=== PATIENT | female | born 1965 | race Caucasian/White ===

== ENCOUNTER 2019-03-30 10:28 | Emergency (ER) | payer MEDICARE, MEDICAID ==
[~2019-03-30] VITALS: Ht 165.1 cm; Wt 85.0 kg
[~2019-03-30 10:28] MED LIST: ALPR-623 PO; COU1T PO; EFF25T PO; LAMO1TAB PO
[2019-03-30 11:20] VITALS: BP 148/100
[2019-03-30] MEDS ORDERED: cyanocobalamin 1,000 mcg/ml inj IM ONE (12:10)
[2019-03-30] MEDS ORDERED: MISCELLANEOUS INJECTION IM ONE (12:15)
== END 2019-03-30 12:59 | disposition home or self-care (01) ==
LOC: ER 10:29
DX: K13.79 Other lesions of oral mucosa (principal); F31.9 Bipolar disorder, unspecified; F41.9 Anxiety disorder, unspecified; Z88.0 Allergy status to penicillin; Z79.899 Other long term (current) drug therapy; Z79.01 Long term (current) use of anticoagulants; Z87.440 Personal history of urinary (tract) infections; Z87.442 Personal history of urinary calculi; Z86.718 Personal history of other venous thrombosis and embolism; Z90.49 Acquired absence of other specified parts of digestive tract; Z87.09 Personal history of other diseases of the respiratory system
CPT/HCPCS: 96372; 99283; J3420

== ENCOUNTER 2019-08-23 18:36 | Emergency (ER) | payer MEDICARE, MEDICAID ==
[~2019-08-23] VITALS: Ht 157.5 cm; Wt 79.5 kg
[2019-08-23 18:47] VITALS: BP 167/86
== END 2019-08-23 20:13 | disposition home or self-care (01) ==
LOC: ER 18:37
DX: Z48.00 Encounter for change or removal of nonsurgical wound dressing (principal); Z86.718 Personal history of other venous thrombosis and embolism; Z86.711 Personal history of pulmonary embolism; Z87.442 Personal history of urinary calculi; Z90.49 Acquired absence of other specified parts of digestive tract; Z88.0 Allergy status to penicillin
CPT/HCPCS: 99281; 99282

== ENCOUNTER 2019-11-02 10:19 | Emergency (ER) | payer MEDICARE, MEDICAID ==
[~2019-11-02] VITALS: Ht 157.5 cm; Wt 80.3 kg
--- NOTE | 2019-11-02 10:34 | NUR ---
PT COMPLAINING OF BODY ACHES SINCE SAID SHE STARTED TO FEEL BETTER YESTERDAY BUT FEELING WORSE TODAY HAVING HOT AND COLD FLASHES WITH BODY ACHES HAS NAUSESA BUT DENIES VOMITING AND DIAREA. DENIES SHORTNESS OF BREATH
[2019-11-02] MEDS ORDERED: normal saline 1000ML IV soln IVB ONE (10:55)
[2019-11-02] MEDS ORDERED: famotidine/PF 10 mg/ml inj IV ONE (10:55)
[2019-11-02] MEDS ORDERED: acetaminophen 325mg tablet PO ONE (10:55)
[2019-11-02] MEDS ORDERED: ringers solution, lacted 1,000 ML IV ONE (11:50)
[2019-11-02 11:54] LABS: BASOPHILS # (AUTO) 0.1 X10'3 (0-0.2); BASOPHILS % (AUTO) 1.1 % (0-1); EOSINOPHILS % (AUTO) 0.1 % (0-6); HEMATOCRIT 42.1 % (35.0-45.0); HEMOGLOBIN 14.1 g/dl (12.0-16.0); LYMPHOCYTES # (AUTO) 1.6 X10'3 (1.1-4.8); LYMPHOCYTES % (AUTO) 24.1 % (21-51); MEAN CORPUSCULAR HEMOGLOBIN 29.5 PG (27.0-31.0); MEAN CORPUSCULAR HGB CONC 33.5 g/dL (33.0-36.5); MEAN CORPUSCULAR VOLUME 88.2 FL (78-98); MONOCYTES # (AUTO) 0.3 X10'3 (0-0.9); MONOCYTES % (AUTO) 3.7 % (2-12); NEUTROPHILS # (AUTO) 4.8 X10'3 (1.8-7.7); PLATELET COUNT 331 X10'3 (140-440); RED BLOOD COUNT 4.78 X10'6 (4.20-5.60); RED CELL DISTRIBUTION WIDTH 14.2 % (11.5-14.5); WHITE BLOOD COUNT 6.8 X10'3 (4.5-11.0)
[2019-11-02 11:55] LABS: ALANINE AMINOTRANSFERASE 24 U/L (12-78); ALBUMIN 4.3 G/DL (3.4-5.0); ALBUMIN/GLOBULIN RATIO 1.3 (1.1-1.5); ALKALINE PHOSPHATASE 94 IU/L (46-116); ANION GAP 13 (8-16); ASPARTATE AMINO TRANSFERASE 23 U/L (10-37); BILIRUBIN,TOTAL 0.5 MG/DL (0.1-1.0); BLOOD UREA NITROGEN 15 MG/DL (7-18); BUN/CREATININE RATIO 16.3 (6.6-38.0); CALCIUM 10.1 MG/DL (8.5-10.1); CHLORIDE 109 MMOL/L (99-107); CREATININE 0.92 MG/DL (0.40-0.90); GLUCOSE 124 MG/DL (70-104); LIPASE < 50 U/L (73-393); POTASSIUM 3.8 MMOL/L (3.5-5.1); SODIUM 144 MMOL/L (135-145); TOTAL CARBON DIOXIDE 22.5 MMOL/L (24-32); TOTAL PROTEIN 7.5 G/DL (6.4-8.2); eGFR 63 ML/MIN
[2019-11-02 13:30] LABS: CLARITY,URINE CLEAR (Clear); COLOR,URINE STRAW (Yellow); GLUCOSE, URINE NEGATIVE (Neg); KETONES,URINE NEGATIVE (Neg); LEUKOCYTE ESTERASE ,URINE NEGATIVE (Neg); NITRITES, URINE NEGATIVE (Neg); OCCULT BLOOD,URINE NEGATIVE (Neg); PROTEIN,URINE NEGATIVE (Neg); UROBILINOGEN,URINE 0.2 E.U/dL (0.2-1.0)
[2019-11-02 13:42] LABS: UA COLLECTION TYPE CLN CATCH MIDSTREAM
[2019-11-02 14:09] VITALS: BP 142/56
== END 2019-11-02 14:06 | disposition home or self-care (01) ==
LOC: ER 10:19
DX: R50.9 Fever, unspecified (principal); R10.9 Unspecified abdominal pain; F41.9 Anxiety disorder, unspecified; F31.9 Bipolar disorder, unspecified; Z86.711 Personal history of pulmonary embolism; Z87.442 Personal history of urinary calculi; Z87.440 Personal history of urinary (tract) infections; Z90.89 Acquired absence of other organs; Z88.0 Allergy status to penicillin; Z79.01 Long term (current) use of anticoagulants; Z79.899 Other long term (current) drug therapy
CPT/HCPCS: 36415; 71046; 80053; 81003; 83690; 85025; 96374; 99284; J3490; J7030

== ENCOUNTER 2020-08-01 14:13 | Emergency (ER) | payer MEDICARE, MEDICAID ==
[~2020-08-01] VITALS: Ht 157.5 cm; Wt 88.6 kg
[~2020-08-01 14:13] MED LIST changes: -EFF25T PO; +VENL25TA48 PO
[2020-08-01 14:54] LABS: CLARITY,URINE CLEAR (Clear); COLOR,URINE YELLOW (Yellow); GLUCOSE, URINE NEGATIVE (Neg); KETONES,URINE TRACE mg/dl (Neg); LEUKOCYTE ESTERASE ,URINE NEGATIVE (Neg); NITRITES, URINE NEGATIVE (Neg); OCCULT BLOOD,URINE SMALL (Neg); PROTEIN,URINE NEGATIVE (Neg); UROBILINOGEN,URINE 0.2 E.U/dL (0.2-1.0)
[2020-08-01 14:56] LABS: UA COLLECTION TYPE CLN CATCH MIDSTREAM
[2020-08-01 14:59] LABS: BACTERIA,URINE 1+ /HPF (Neg); RBC,URINE 0-2 /HPF (0-2); WBC,URINE 0-4 /HPF (0-4)
[2020-08-01 15:00] LABS: MUCUS STRANDS FEW /LPF (Neg); SQUAMOUS EPITHELIAL CELL,UR MODERATE /LPF (FEW)
[2020-08-01 15:00] LABS: BASOPHILS # (AUTO) 0.1 X10'3 (0-0.2); BASOPHILS % (AUTO) 1.2 % (0-1); EOSINOPHILS % (AUTO) 0 % (0-6); HEMATOCRIT 44.8 % (35.0-45.0); HEMOGLOBIN 15.4 g/dl (12.0-16.0); LYMPHOCYTES # (AUTO) 1.7 X10'3 (1.1-4.8); LYMPHOCYTES % (AUTO) 19.8 % (21-51); MEAN CORPUSCULAR HEMOGLOBIN 30.4 PG (27.0-31.0); MEAN CORPUSCULAR HGB CONC 34.3 g/dL (33.0-36.5); MEAN CORPUSCULAR VOLUME 88.6 FL (78-98); MEAN PLATELET VOLUME 7.7 FL (7.4-10.4); MONOCYTES # (AUTO) 0.5 X10'3 (0-0.9); MONOCYTES % (AUTO) 5.6 % (2-12); NEUTROPHILS # (AUTO) 6.3 X10'3 (1.8-7.7); NEUTROPHILS % (AUTO) 73.4 % (42-75); PLATELET COUNT 383 X10'3 (140-440); RED BLOOD COUNT 5.06 X10'6 (4.20-5.60); RED CELL DISTRIBUTION WIDTH 13.7 % (11.5-14.5); WHITE BLOOD COUNT 8.6 X10'3 (4.5-11.0)
[2020-08-01 15:11] LABS: ALANINE AMINOTRANSFERASE 15 U/L (12-78); ALBUMIN 4.4 G/DL (3.4-5.0); ALBUMIN/GLOBULIN RATIO 1.2 (1.1-1.5); ALKALINE PHOSPHATASE 136 IU/L (46-116); ANION GAP 17 (8-16); ASPARTATE AMINO TRANSFERASE 16 U/L (10-37); BILIRUBIN,TOTAL 0.3 MG/DL (0.1-1.0); BLOOD UREA NITROGEN 21 MG/DL (7-18); BUN/CREATININE RATIO 23.9 (6.6-38.0); CALCIUM 10.4 MG/DL (8.5-10.1); CHLORIDE 103 MMOL/L (99-107); CREATININE 0.88 MG/DL (0.40-0.90); GLUCOSE 130 MG/DL (70-104); LIPASE < 50 U/L (73-393); SODIUM 140 MMOL/L (135-145); TOTAL CARBON DIOXIDE 19.9 MMOL/L (24-32); TOTAL PROTEIN 8.2 G/DL (6.4-8.2); eGFR 66 ML/MIN
[2020-08-01] MEDS ORDERED: normal saline 1000ML IV soln IVB ONE ×2 (17:40→20:00)
--- NOTE | 2020-08-01 19:33 | NUR ---
Patient up to the bathroom Ad Claudia.
[2020-08-01 20:30] VITALS: BP 154/94
== END 2020-08-01 20:32 | disposition home or self-care (01) ==
LOC: ER 14:13
DX: E86.0 Dehydration (principal); E83.52 Hypercalcemia; R53.1 Weakness; R10.13 Epigastric pain; R63.0 Anorexia; R53.83 Other fatigue; F41.9 Anxiety disorder, unspecified; F31.9 Bipolar disorder, unspecified; Z86.711 Personal history of pulmonary embolism; Z87.442 Personal history of urinary calculi; Z87.440 Personal history of urinary (tract) infections; Z86.718 Personal history of other venous thrombosis and embolism; Z90.89 Acquired absence of other organs; Z88.0 Allergy status to penicillin; Z79.899 Other long term (current) drug therapy
CPT/HCPCS: 36415; 80053; 81001; 83690; 83880; 85025; 96360; 99285; J7030

== ENCOUNTER 2021-11-12 09:11 | Emergency (ER) | payer MEDICARE, MEDICAID ==
[~2021-11-12] VITALS: Ht 157.5 cm; Wt 86.4 kg
[2021-11-12 09:23] VITALS: BP 154/87
[2021-11-12] MEDS ORDERED: DEXAMETHASONE 6 MG TABLET PO SCH (09:45)
[2021-11-12] MEDS ORDERED: clindamycin 150mg capsule PO SCH (09:45)
[2021-11-12] MEDS ORDERED: ACET325T57 PO (09:51)
[2021-11-12] MEDS ORDERED: CHLO118L3 TOP (09:51)
[2021-11-12] MEDS ORDERED: TRAM50TA2 PO (09:51)
[2021-11-12] MEDS ORDERED: CLIN300C54 PO (09:51)
== END 2021-11-12 10:07 | disposition home or self-care (01) ==
LOC: ER 09:12
DX: K04.7 Periapical abscess without sinus (principal); K08.89 Other specified disorders of teeth and supporting structures; R10.84 Generalized abdominal pain; F41.9 Anxiety disorder, unspecified; F31.9 Bipolar disorder, unspecified; F17.200 Nicotine dependence, unspecified, uncomplicated; F12.90 Cannabis use, unspecified, uncomplicated; Z86.711 Personal history of pulmonary embolism; Z87.442 Personal history of urinary calculi; Z87.440 Personal history of urinary (tract) infections; Z86.718 Personal history of other venous thrombosis and embolism; Z90.89 Acquired absence of other organs; Z88.0 Allergy status to penicillin; Z79.2 Long term (current) use of antibiotics; Z79.899 Other long term (current) drug therapy
CPT/HCPCS: 99283; J8540

== ENCOUNTER 2024-02-14 19:50 | Emergency (ER) | payer MEDICARE, MEDICAID ==
[~2024-02-14] VITALS: Ht 157.5 cm; Wt 81.3 kg
[~2024-02-14 19:50] MED LIST changes: +CHLO118L3 TOP
[2024-02-14 19:55] VITALS: TEMP 99.3
--- NOTE | 2024-02-14 20:03 | NUR ---
SPOKE TO ER MD ABOUT PT. DR DOWNING GAVE VERBAL ORDER FOR ONE TROPONIN DRAW AND AN EKG. ORDER REPEATED BACK FOR ACCURACY AND PLACED.
--- NOTE | 2024-02-14 20:17 | NUR ---
PT EKG WITH LOTS OF ARTIFACT; PT UNABLE TO SIT STILL, BREATHING HEAVY, DRY HEAVING. MD AWARE. WILL REPEAT EKG NEEDED.
[2024-02-14 20:25] LABS: BASOPHILS # (AUTO) 0.1 X10'3 (0-0.2); BASOPHILS % (AUTO) 0.7 % (0-1); EOSINOPHILS % (AUTO) 0 % (0-6); HEMATOCRIT 41.3 % (35.0-45.0); HEMOGLOBIN 13.8 g/dl (12.0-16.0); LYMPHOCYTES # (AUTO) 0.9 X10'3 (1.1-4.8); LYMPHOCYTES % (AUTO) 8.8 % (21-51); MEAN CORPUSCULAR HEMOGLOBIN 29.9 PG (27.0-31.0); MEAN CORPUSCULAR HGB CONC 33.4 g/dL (33.0-36.5); MEAN CORPUSCULAR VOLUME 89.5 FL (78-98); MEAN PLATELET VOLUME 7.5 FL (7.4-10.4); MONOCYTES # (AUTO) 0.3 X10'3 (0-0.9); MONOCYTES % (AUTO) 2.7 % (2-12); NEUTROPHILS # (AUTO) 8.8 X10'3 (1.8-7.7); NEUTROPHILS % (AUTO) 87.8 % (42-75); PLATELET COUNT 408 X10'3 (140-440); RED BLOOD COUNT 4.61 X10'6 (4.20-5.60); RED CELL DISTRIBUTION WIDTH 14.8 % (11.5-14.5)
[2024-02-14 20:34] LABS: ANION GAP 18 (8-16); CHLORIDE 106 MMOL/L (99-107); GLUCOSE 153 MG/DL (70-104); POTASSIUM 3.6 MMOL/L (3.5-5.1); SODIUM 141 MMOL/L (135-145); TOTAL CARBON DIOXIDE 16.7 MMOL/L (24-32)
[2024-02-14 20:35] LABS: ALANINE AMINOTRANSFERASE 24 U/L (12-78); ALBUMIN 4.1 G/DL (3.4-5.0); ALBUMIN/GLOBULIN RATIO 1.1 (1.1-1.5); ALKALINE PHOSPHATASE 117 IU/L (46-116); ASPARTATE AMINO TRANSFERASE 17 U/L (10-37); BILIRUBIN,TOTAL 0.4 MG/DL (0.1-1.0); BLOOD UREA NITROGEN 14 MG/DL (7-18); BUN/CREATININE RATIO 13.7 (10.0-20.0); CREATININE 1.02 MG/DL (0.40-0.90); eCRCL 47 ML/MIN; eGFR 55 ML/MIN
[2024-02-14 20:44] LABS: URINE HCG NEGATIVE (NEG)
[2024-02-14 20:45] LABS: BILIRUBIN,URINE NEGATIVE (Neg); CLARITY,URINE CLEAR (Clear); COLOR,URINE YELLOW (Yellow); GLUCOSE, URINE NEGATIVE (Neg); KETONES,URINE NEGATIVE (Neg); LEUKOCYTE ESTERASE ,URINE NEGATIVE (Neg); NITRITES, URINE NEGATIVE (Neg); OCCULT BLOOD,URINE TRACE-INTACT (Neg); PROTEIN,URINE NEGATIVE (Neg); UA COLLECTION TYPE CLN CATCH MIDSTREAM; UROBILINOGEN,URINE 0.2 E.U/dL (0.2-1.0)
[2024-02-14 20:46] LABS: LIPASE 9 U/L (16-77)
[2024-02-14 20:53] LABS: BACTERIA,URINE 1+ /HPF (Neg); SQUAMOUS EPITHELIAL CELL,UR MANY /LPF (FEW); WBC,URINE 0-4 /HPF (0-4)
[2024-02-14] MEDS ORDERED: ONDA-243 PO (21:45)
[2024-02-14] MEDS ORDERED: DICY20TA17 PO (21:45)
[2024-02-14] MEDS: normal saline 1000ml 1,000 ML IV ONE (22:36)
[2024-02-14] MEDS: metoclopramide 5 mg/ml inj IV ONE (22:36)
[2024-02-14] MEDS: diphenhydrAMINE 50 mg/ml inj IV ONE (22:37)
[2024-02-14] MEDS: dicyclomine 10 MG capsule PO ONE (22:46)
[2024-02-14 22:49] VITALS: BP 174/101; PULSE 89; RESP 18; O2SAT 99
== END 2024-02-14 23:13 | disposition home or self-care (01) ==
LOC: ER 19:50
DX: K52.9 Noninfective gastroenteritis and colitis, unspecified (principal); F41.9 Anxiety disorder, unspecified; F32.A Depression, unspecified; F12.90 Cannabis use, unspecified, uncomplicated; Z88.0 Allergy status to penicillin; Z79.899 Other long term (current) drug therapy; Z98.890 Other specified postprocedural states
CPT/HCPCS: 36415; 74176; 80053; 81001; 81025; 83690; 84484; 85025; 93005; 96374; 96375; 99285; J1200; J2765; J7030